=== PATIENT | female | born 1980 | race Caucasian/White ===

== ENCOUNTER → 2021-07-30 12:04 | Outpatient (BNVA) | payer SELFPAY | PROVIDERS: Family Provider Internal Medicine; Visit Provider Family Medicine Adult Medicine | DX: M79.7 Fibromyalgia (principal); Z87.39 Personal history of other diseases of the musculoskeletal system and connective tissue | CPT/HCPCS: 86140; 86431 ==

== ENCOUNTER 2021-10-04 07:29 | Outpatient (CLI) | payer SELFPAY ==
--- NOTE | 2021-10-04 07:37 | MM_ITS ---
WS: [id number] BILATERAL DIGITAL SCREENING MAMMOGRAPHY WITH CAD CLINICAL INFORMATION: SCREENING HISTORY: Screening mammogram. Soreness left axilla. COMPARISON: May 19, 2016 TECHNIQUE: Bilateral CC and MLO views. FINDINGS: The breasts are composed of heterogeneous fibroglandular density tissue, which can limit the detectio n of small underlying mass lesions. No suspicious mass, asymmetry, calcifications, or architectural d istortion. No evidence of malignancy. Dense nodular breast tissue upper outer left breast more prominent compared to May 19, 2016. Th is is indeterminant and recommend further evaluation with spot magnification views and ultrasound. Ri ght breast is unchanged and unremarkable. Slightly prominent intramammary lymph node along the right axillary tail appears to have been present previously MM/[id number] IMPRESSION: BI-RADS: 0-Incomplete: Need additional imaging evaluation FOLLOW UP: Need Additional Imaging Recommend LEFT breast diagnostic mammography with spot magnification views and ultrasound for further evaluation
== END 2021-10-04 07:30 | disposition home or self-care (01) ==
PROVIDERS: PCP Family Medicine Adult Medicine; Visit Provider Family Medicine Adult Medicine
DX: Z12.31 Encounter for screening mammogram for malignant neoplasm of breast (principal)
CPT/HCPCS: 77067

== ENCOUNTER 2022-12-09 11:07 | Outpatient (CLI) | payer SELFPAY ==
--- NOTE | 2022-12-09 11:23 | MM_ITS ---
WS: [id number] BILATERAL 3D TOMOSYNTHESIS DIGITAL DIAGNOSTIC MAMMOGRAPHY WITH CAD CLINICAL INFORMATION: LT BR LUMP HISTORY: Additional views COMPARISON: October 04, 2021 TECHNIQUE: Bilateral CC, MLO, and ML views. FINDINGS: The breasts are composed of heterogeneous fibroglandular density, which can limit the detection of sm all underlying mass lesions. Persistent dense breast tissue upper outer LEFT breast. Ultrasound descr ibed below. RIGHT breast is unchanged in appearance. ULTRASOUND BREAST LEFT TECHNIQUE: Ultrasound left breast focused area of concern. CLINICAL INFORMATION: LT BR LUMP FINDINGS: Ultrasound LEFT breast upper-outer quadrant in the area of mammographic findings. Dense underlying p arenchymal density. No cystic or solid lesions. No suspicious findings. Recommend return to annual sc reening mammography. MM/[id number] IMPRESSION: BI-RADS: 2-Benign FOLLOW UP: 1 Year Follow-up Recommend return to annual screening mammography.
== END 2022-12-09 11:08 | disposition home or self-care (01) ==
PROVIDERS: PCP Family Medicine Adult Medicine; Visit Provider Family Medicine Adult Medicine
DX: N63.21 Unspecified lump in the left breast, upper outer quadrant (principal)
CPT/HCPCS: 76642; 77062; G0279